=== PATIENT | female | born 1965 | race Caucasian/White ===

== ENCOUNTER 2018-06-09 12:51 | Outpatient (CLI) | payer OTHER | END 2018-06-09 12:52 | disposition home or self-care (01) | LOC: SC 12:51 | PROVIDERS: ATTEND Internal Medicine Pulmonary Disease | DX: R06.81 Apnea, not elsewhere classified (principal); G47.10 Hypersomnia, unspecified; R06.83 Snoring; G47.8 Other sleep disorders | CPT/HCPCS: 99203; 99212 ==

== ENCOUNTER 2018-07-12 19:30 | Outpatient (CLI) | payer OTHER | END 2018-07-12 23:59 | disposition home or self-care (01) | LOC: SC 19:30 | PROVIDERS: ATTEND Internal Medicine Pulmonary Disease | DX: G47.33 Obstructive sleep apnea (adult) (pediatric) (principal) | CPT/HCPCS: 95806 ==

== ENCOUNTER 2018-07-28 10:16 | Outpatient (CLI) | payer OTHER | END 2018-07-28 10:17 | disposition home or self-care (01) | LOC: SC 10:16 | PROVIDERS: ATTEND Internal Medicine Pulmonary Disease | DX: G47.33 Obstructive sleep apnea (adult) (pediatric) (principal) | CPT/HCPCS: 99212; 99213 ==

== ENCOUNTER 2018-11-25 15:42 | Outpatient (CLI) | payer OTHER | END 2018-11-25 15:43 | disposition home or self-care (01) | LOC: SC 15:42 | PROVIDERS: ATTEND Nurse Practitioner Family | DX: G47.33 Obstructive sleep apnea (adult) (pediatric) (principal) | CPT/HCPCS: 99212; 99214 ==

== ENCOUNTER 2019-01-13 16:07 | Outpatient (CLI) | payer OTHER ==
[2019-01-13 18:15] VITALS: BP 124/80
--- NOTE | 2019-01-13 18:15 | SLEEP CARE CONSULTATION ---
Information from patient questionnaire entered by Jeri Mccarthy. I have reviewed and concur with the information entered by Jeri Mccarthy. This document represents the service I personally performed and the decisions made by me, Kira Lowery, RN, MSN, SCOOP FILLER. History of Present Illness Previous diagnosis: Severe, Obstructive Sleep Apnea-Hypopnea Syndrome AHI: 77.4 Reason for CPAP/BiPAP follow up: other (6 week) Equipment type: CPAP Equipment obtained from: [employer] Mask style: Full face Mask brand: Resmed Backup mask available: Yes (does not fit well) Last cushion change: 2 months ago - no supplies HPI additional information: The Jasmyn View mask fitted at last visit did not work as leaked too much despite mask adjustment. So she went back to the Air fit mask but then got a head and body rash with severe itching. She was first seen in urgent care 3-4 weeks ago and given antibiotics that made it worse. She has since established with her spouse PCP and new medications started with some relief noted in itching from steroid cream. This head rash has prevented her from using her CPAP due to discomfort of headgear. Reduced use initially due to head cold for 2 weeks. She has had some type of head rash for years with some relief with antihistamine and intermittent "flare ups ' such as this past month. CPAP Compliance Data - Data Reviewed with Patient Average duration of nightly device use: 3.2 Compliance rate %: 10 Current pressure setting (cmH2O): 12-15 Average residual AHI: 2.2 Subjective Patient concerns: reports: mask discomfort (due to rash), dry mouth, nose, throat (dry mouth). denies: aerophagia, air blowing in eyes, mask leak noise, condensation in mask/hose, nasal congestion, epistaxis Observed to snore while using device: No Current pressure setting perceived as: comfortable On therapy, patient: reports: sleeping better, being more awake and alert during the day, more rested overall. denies: drowsiness while driving Initial [place] Sleepiness Scale score: 13 Current [place] Sleepiness Scale score: 9 Allergies and Home Medications Known drug allergies: No Home medication list reviewed: Yes Allergy and home medication list: Hydroxyzine Tab as needed Advil OTC as needed steroid cream bid and prn Physical Exam Blood Pressure: 124/80 Cuff size: long Heart Rate: 77 O2 Saturation: 97 Height: 5 ft 9 in Weight (kg): 119.295 kg Body Mass Index: 38.8 BMI Classification: Class 2 Impression and Plan 1. Obstructive Sleep Apnea-Hypopnea Syndrome, very severe, with poor treatment compliance and good apnea control. On CPAP therapy, the patient has better sleep quality and is more rested overall. To assist her use her CPAP mask comfortably with her rash, we discussed cloth barriers. She can try the cold wash cloth she uses for comfort under the mask. She can try a knit cap. I also showed her Pad A cheek pamphlet and samples of strap covers that can be made as a soft barrier. For oral dryness, she is advised to adjust humididty and heated hose as discussed and shown on sample device. For questions about device coverage contact her insurance. I encouraged her to restart therapy using measures discussed. I again reviewed patient's apnea severity and rationale for treatment to reduce apnea, improve sleep quality and reduce cardiovascular and cerebrovascular events was reviewed. I also reviewed the benefit of consistent device use of CPAP for healing. She has also regained some weight and voiced she will attempt to lose weight again. Patient asked that her visit note be sent to her new PCP - Dr Rae. Dr. Veloz is for her CDL. * Restart auto CPAP pressure at 12-15 cmH2O * Try cloth barrier * Adjust humidity. * Notify me if snoring with mask or feeling that the pressure is too much or too little * Attempt to lose weight * Return for follow up in 1-2 months , or sooner if concerns arise I spent 100% of this 30 minute visit face to face with the patient with greater than 50% of this was spent time counseling the patient and coordination of care.
== END 2019-01-13 16:08 | disposition home or self-care (01) ==
LOC: SC 16:07
PROVIDERS: ATTEND Nurse Practitioner Family
DX: G47.33 Obstructive sleep apnea (adult) (pediatric) (principal)
CPT/HCPCS: 99212; 99214

== ENCOUNTER 2019-03-10 08:51 | Outpatient (CLI) | payer OTHER ==
[2019-03-10 09:47] VITALS: BP 118/70
--- NOTE | 2019-03-10 09:47 | SLEEP CARE CONSULTATION ---
Information from patient questionnaire entered by Jeri Mccarthy. I have reviewed and concur with the information entered by Jeri Mccarthy. This document represents the service I personally performed and the decisions made by me, Kira Lowery, RN, MSN, VEGETABLE VENDOR. 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 New medication has reduced rash and able to use her CPAP better. The oral dryness is the same even with adjustment of humidity. CPAP Compliance Data - Data Reviewed with Patient Average duration of nightly device use: 5.1 Compliance rate %: 83 (30 days) Current pressure setting (cmH2O): 12-15 Humidity settin Average residual AHI: 1.9 Subjective Missed days of use due to: reports: travel, other (fell ) Patient concerns: reports: air blowing in eyes (more recent with oldness of mask cushion), mask leak noise (3-4 times a night the last few weeks), nasal congestion (chronic and not interferring with use of CAP. ), dry mouth, nose, throat (dry mouth- mild before and after CPAP), other (Rash on back of head - much better- headgear now comfortable ). denies: aerophagia, mask discomfort, condensation in mask/hose, epistaxis Current pressure setting perceived as: too high (waking to pressure too marquis) On therapy, patient: reports: sleeping better, awakening more refreshed, being more awake and alert during the day, more rested overall (but residual fatigue). denies: drowsiness while driving Initial [place] Sleepiness Scale score: 13 Current [place] Sleepiness Scale score: 11 Allergies and Home Medications Allergy and home medication list: Advil OTC as needed hydrocortisone topical 2 times daily as needed Clobetasol liquid 2 times a day as needed Review of Systems Review of systems same as previous: No (breast abnormality and biopsy planned. ) Physical Exam Blood Pressure: 118/70 Cuff size: long Heart Rate: 72 O2 Saturation: 97 Height: 5 ft 9 in Weight: 264 lb 6.4 oz Body Mass Index: 39.0 BMI Classification: Obesity Class 2 Impression and Plan 1. Obstructive Sleep Apnea-Hypopnea Syndrome, very severe, with good treatment compliance and good apnea control. On CPAP therapy, the patient has better sleep quality and is more rested overall but has residual fatigue that could be due to sleep inefficiency. Currently she is only averaging 5 hours of sleep related to falling asleep without CPAP. I explained that most people require 7-9 hours of sleep for optimal mental and physical function. Short and fragmented sleep can also affect ability to lose weight. Current BMI is 39, class 2 obesity. I reviewed how her obesity affects her apnea risk and overall health risks. She is advised to lose weight. To obtain more sleep, she is advised to set a bedtime alarm to put on her CPAP so does not fall asleep without it while relaxing watching TV. To reduce pressure discomfort, I will reduce CPAP pressure to [id number]. She is advised to contact me if pressure remains uncomfortable. To reduce oral dryness, one she is to contact [facility] to update her mask to reduce leaking and sleep fragmentation. She is also to check her humidity and increase setting as shown on sample again reviewed. Patient's apnea severity and rationale for treatment to reduce apnea, improve sleep quality and reduce cardiovascular and cerebrovascular events was reviewed. I also reviewed that maximum benefit of treatment is achieved when able to use her CPAP with all sleep. * * Change CPAP pressure to 12 cmH2O * Obtain more sleep. * update mask * adjust humidity * Notify me if snoring with mask or feeling that the pressure is too much or too little * Attempt to lose weight * Return for follow up in 2 months , or sooner if concerns arise v I spent 100% of this 35 minute visit face to face with the patient with greater than 50% of this was spent time counseling the patient and coordination of care.
== END 2019-03-10 08:52 | disposition home or self-care (01) ==
LOC: SC 08:51
PROVIDERS: ATTEND Nurse Practitioner Family
DX: G47.33 Obstructive sleep apnea (adult) (pediatric) (principal); E66.9 Obesity, unspecified; Z68.39 Body mass index [BMI] 39.0-39.9, adult
CPT/HCPCS: 99212; 99214

== ENCOUNTER 2022-04-16 13:45 | Outpatient (CLI) | payer OTHER ==
[2022-04-16 14:45] VITALS: BP 122/68
--- NOTE | 2022-04-16 14:45 | SLEEP CARE CONSULTATION ---
Information from patient questionnaire entered by Vandana Guerrier. I have reviewed and concur with the information entered by Vandana Guerrier. This document represents the service I personally performed and the decisions made by me, Dyana Ochoa ARNP. History of Present Illness Service Date and Time: 04/16/2022 1345 Reason for Visit: New patient, Previously diagnosed sleep apnea, Re-establish care Chief Complaint: reports: Snoring, Other (UPDATE SUPPLIES ) Date of Onset: 20+YRS Usual bedtime: 8-930PM Time it takes to fall asleep: 0MIN Snores at night: Yes Observed to quit breathing while asleep: Yes Sleeps alone due to snoring: Yes Number of times waking at night: 3 Reasons for waking at night: reports: Snoring, Bathroom Toss, Turn, or Twitch while sleeping: Yes Recalls having dreams: Yes Usually gets out of bed at: 340AM Feels refreshed in the morning: Yes (SOMETIMES) Morning headache: No Sleepy or fatigued during the day: Yes (SOMETIMES) Ever fallen asleep while driving: No Takes day naps: No Year and Where: [facility] Additional HPI information: NORBERTO WHITLEY was previously diagnosed to have very severe, AHI 77.4, obstructive sleep apnea-hypopnea syndrome and come in today to re-establish care for CPAP therapy. - Parasomnia Symptoms Ever been unable to move upon waking from sleep: No Walks in sleep: No Talks in sleep: Yes Ever acted out dreams in sleep: No Ever felt weak in the knees when startled or emotional: No Bothered by creepy, crawly, restless sensations in legs: No Problems with memory or concentration: No CPAP Compliance Data - Data Reviewed with Patient Average duration of nightly device use: 4 hours 34 minutes Compliance rate %: 57 ( days used) Current pressure setting (cmH2O): 12 Average residual AHI: 23.7 Central apnea: 0.1 Obstructive apnea: 18.2 Hypopnea: 5.2 Average large leak: 2.3 Compliance data discussion: Patient has an Airsense 10 ResMed. She has been using it nightly. She is using a full face mask, ResMed Airfit F20 medium. She has not been getting supplies for a long time. Subjective Missed days of use due to: reports: other (falling asleep without mask, puts on later; claustrophobia issues with mask) Patient concerns: reports: mask discomfort (claustrophobia), air blowing in eyes, mask leak noise, dry mouth, nose, throat. denies: aerophagia, condensation in mask/hose, nasal congestion, epistaxis Observed to snore while using device: Yes Current pressure setting perceived as: comfortable On therapy, patient: reports: sleeping better, awakening more refreshed, being more awake and alert during the day, more rested overall. denies: drowsiness while driving Initial [place] Sleepiness Scale score: 13 Current [place] Sleepiness Scale score: 6 (04/16/22) Past Medical History Past Medical History: reports: Claustrophobia, Arthritis Social History The patient's occupation is a UNKNOWN. Patient is and lives in [facility]. Have you smoked in the past 12 months: Yes Cigarettes per day (20/pack): 12 Years of smokin Smoking Pack Years: 18.0 Alcohol use: Yes Alcohol amount and frequency: 2-3 EVERYNIGHT Caffeine use: Yes Caffeine amount and frequency: 1 POT COFFEE EVERY MORNING Family History Family history of sleep disordered breathing: Yes Family Hx Sleep Apnea: Father: Snoring, Sibling: Snoring, Grandparent: Snoring Allergies and Home Medications Known drug allergies: No Drug allergies reviewed: Yes (NKDA) Home medication list reviewed: Yes Allergy and home medication list: Medications: Meloxicam Vitamin B complex Potassium, prn Review of Systems Weight gain over past 5 years: 50 Psychiatric: reports: claustrophobia Musculoskeletal: reports: joint pain, back pain Physical Exam Vital signs obtained and entered by: VANDANA Langley MA Blood Pressure: 122/68 (LEFT ARM) Cuff size: long Heart Rate: 86 O2 Saturation: 98 Height: 5 ft 10 in Weight: 278 lb 12.8 oz Body Mass Index: 39.9 BMI Classification: Obese Neck circumference: 17 Heart: regular rate and rhythm Lungs: clear bilaterally Impression and Plan 1. Obstructive Sleep Apnea-Hypopnea Syndrome, very severe, with good treatment compliance and fair apnea control with elevated residual AHI. On CPAP therapy, the patient has better sleep quality and is more rested overall. The patients pressure will be changed to autoCPAP 12-15 cmH20 for elevation of residual AHI and snoring when using her CPAP. Patient advised to contact me if pressure change is uncomfortable so that it can be adjusted. Goals for apnea control discussed. Patient needs a DME supplier because the one she had used in the past has closed. Patient was advised that another DME can be used. I will have my area coordinator inform of DME options. A [facility] prescription will then be made. Patient advised to contact this office if further supply problems. She has issues with claustrophobia. I talked to her about trying a nasal mask since the full face F20 she is using can cause discomfort for her claustrophobia. A few options show to her in the office. She voice willingness to try a different mask. I will add mask fitting for nasal mask to her prescription. Patient's apnea severity and rationale for treatment to reduce apnea, improve sleep quality and reduce cardiovascular and cerebrovascular events was reviewed. 2. Obesity, unspecified. Currently patients BMI is 39.9. Obesity increases the risk of apnea, CPAP pressure requirements and overall health risks especially cardiovascular and diabetes. Thus patient is advised to lose weight. * Change auto CPAP pressure to 12-15 cmH2O * Updates supplies * Mask fitting for nasal mask * DME transfer * Notify me if snoring with mask or feeling that the pressure is too much or too little * Attempt to lose weight * Call this office if any problems using CPAP * Return for follow up in 1-2 months, or sooner if concerns arise Counseling Topics: Spare mask, Weight loss health impact Visit Type: In Office Time Spent with Patient (minutes): 39 Provider Statement: I spent 100% of the Face to Face Visit with the patient with greater than 50% spent counseling the patient and coordination of care.
== END 2022-04-16 13:46 | disposition home or self-care (01) ==
LOC: SC 13:45
PROVIDERS: ATTEND Nurse Practitioner Family
DX: G47.33 Obstructive sleep apnea (adult) (pediatric) (principal); E66.9 Obesity, unspecified; Z68.39 Body mass index [BMI] 39.0-39.9, adult; F17.210 Nicotine dependence, cigarettes, uncomplicated
CPT/HCPCS: 99203; 99212

== ENCOUNTER 2022-05-31 08:42 | Outpatient (CLI) | payer OTHER ==
[2022-05-31 09:11] VITALS: BP 128/70
--- NOTE | 2022-05-31 09:11 | SLEEP CARE CONSULTATION ---
Information from patient questionnaire entered by Vandana Guerrier. I have reviewed and concur with the information entered by Vandana Guerrier. This document represents the service I personally performed and the decisions made by me, Dyana Ochoa ARNP. History of Present Illness Service Date and Time: 05/31/2022 0842 Previous diagnosis: Very Severe, Obstructive Sleep Apnea-Hypopnea Syndrome AHI: 77.4 Reason for follow up: other (SIX WEEK F/U PRESSURE CHANGE ) Equipment type: CPAP (RESMED) Equipment obtained from: Other ([facility]; getting supplies) Mask style: Full face Mask brand: Respironics (Dreamwear) Backup mask available: Yes (old mask) Last cushion change: 6 weeks Year and Where: 2018 [place] [facility] additional information: NORBERTO WHITLEY was diagnosed to have very severe, AHI 77.4, obstructive sleep apnea-hypopnea syndrome and returned today for CPAP therapy six weeks with pressure change follow-up. Sleep Study - Results Year and Where: 2018 [facility] Compliance Data - Data Reviewed with Patient Average duration of nightly device use: 5 HRS 3 MIN Compliance rate %: 80 (04/30/22-05/29/22; 29/30 days used) Current pressure setting (cmH2O): 12-15 Average residual AHI: 2.4 Central apnea: 0.1 Obstructive apnea: 1.2 Subjective Patient concerns: reports: air blowing in eyes, mask leak noise. denies: aerophagia, mask discomfort, condensation in mask/hose, nasal congestion, dry mouth, nose, throat, epistaxis Observed to snore while using device: No Current pressure setting perceived as: comfortable On therapy, patient: reports: sleeping better, awakening more refreshed, being more awake and alert during the day, more rested overall. denies: drowsiness while driving Initial [place] Sleepiness Scale score: 13 Current [place] Sleepiness Scale score: 10 (05/31/22) Allergies and Home Medications Drug allergies reviewed: Yes (NKDA) Home medication list reviewed: Yes (no changes) Review of Systems Review of systems same as previous: Yes (no changes) Physical Exam Vital signs obtained and entered by: VANDANA Langley MA Blood Pressure: 128/70 (LEFT ARM) Cuff size: regular Heart Rate: 69 O2 Saturation: 95 Height: 5 ft 9 in Weight: 286 lb 12.8 oz Body Mass Index: 42.3 BMI Classification: Morbidly Obese Impression and Plan 1. Obstructive Sleep Apnea-Hypopnea Syndrome, very severe, with good treatment compliance and good apnea control. Patient tried the hybrid full face DreamWear mask. She does like the mask but does have a little bit of trouble with the cushion sliding down on her chin. I encouraged her to try the larger cushion size because she is using the small right now. The medium cushion may fit better and not slide down on her face. She voiced understanding. Patient's apnea severity and rationale for treatment to reduce apnea, improve sleep quality and reduce cardiovascular and cerebrovascular events was reviewed. 2. Obesity, unspecified. Currently patients BMI is 42.3. Obesity increases the risk of apnea, CPAP pressure requirements and overall health risks especially cardiovascular and diabetes. Thus patient is advised to lose weight. * Continue auto CPAP pressure at 12-15 cmH2O * Notify me if snoring with mask or feeling that the pressure is too much or too little * Attempt to lose weight * Call this office if any problems using CPAP * Return for follow up in 1 year, or sooner if concerns arise Counseling Topics: Spare mask, Weight loss health impact Visit Type: In Office Time Spent with Patient (minutes): 15 Provider Statement: I spent 100% of the Face to Face Visit with the patient with greater than 50% spent counseling the patient and coordination of care.
== END 2022-05-31 08:43 | disposition home or self-care (01) ==
LOC: SC 08:42
PROVIDERS: ATTEND Nurse Practitioner Family
DX: G47.33 Obstructive sleep apnea (adult) (pediatric) (principal); E66.01 Morbid (severe) obesity due to excess calories; Z68.41 Body mass index [BMI] 40.0-44.9, adult
CPT/HCPCS: 99212